=== PATIENT | male | born 1960 | race American Indian/Alaskan Native ===

== ENCOUNTER 2017-09-11 08:56 | Outpatient (CLI) | payer OTHER ==
--- NOTE | 2017-09-11 13:34 | Ultrasound Report ---
Abdominal sonogram: History: Abdominal pain. Bloating. Findings: Aortic diameter 2.6 cm. Normal liver. No intrahepatic or extrahepatic duct dilatation. Common bile duct diameter 2 mm the gallbladder wall thickness 2 mm. No calculi in the gallbladder. Multiple small polyps within the gallbladder. Right kidney 9.7 x 4.6 x 4.6 cm. Cortical thickness 1.2 cm. Left kidney 9.3 x 5.4 x 5.6 cm. Cortical thickness 1.6 cm. Normal spleen measures 9.8 cm. Pancreas normal. Impression: Multiple polyps within the gallbladder.
== END 2017-09-11 08:57 | disposition home or self-care (01) ==
LOC: US 08:56
PROVIDERS: ATTEND Family Medicine
DX: K82.4 Cholesterolosis of gallbladder (principal); R14.0 Abdominal distension (gaseous)
CPT/HCPCS: 76700

== ENCOUNTER 2017-11-21 09:03 | Outpatient (CLI) | payer OTHER ==
--- NOTE | 2017-11-21 11:59 | Cat Scan Report ---
CT scan of abdomen and pelvis with IV contrast: History: Left lower quadrant abdominal pain. Findings: Normal lung disease. No pleural or pericardial effusion. Normal spleen, pancreas and gallbladder. Subcentimeter faint hypodensities in the liver probably suggestive of cysts. Normal right adrenal gland. There is 1.2 cm mass identified in the left adrenal gland with attenuation value of approximately 75-80 HU. Normal kidneys and bladder. No free intraperitoneal fluid or air. No evidence of adenopathy. Prostate measures 3.6 x 4.6 cm this faint central calcification. Few scattered diverticula in the sigmoid. No definite evidence of diverticulitis. No evidence of appendicitis. No bowel distention. Impression: Small hypodensities liver probably cysts. Mass left adrenal gland probably an adenoma among others. If clinically indicated MRI scan may be advised. Diverticulosis sigmoid colon without evidence of diverticulitis.
== END 2017-11-21 09:04 | disposition home or self-care (01) ==
LOC: CT 09:03
PROVIDERS: ATTEND Internal Medicine Gastroenterology
DX: K57.30 Diverticulosis of large intestine without perforation or abscess without bleeding (principal); E27.8 Other specified disorders of adrenal gland; N42.89 Other specified disorders of prostate; R14.0 Abdominal distension (gaseous)
CPT/HCPCS: 74177; Q9967